=== PATIENT | female | born 1975 | race Caucasian/White ===

== ENCOUNTER 2018-09-18 05:34 | Day surgery (SDC) | payer OTHER ==
[~2018-09-18] VITALS: Ht 162.6 cm; Wt 102.1 kg
--- NOTE | ~2018-09-18 | O ---
[facility] [place] [address] OPERATIVE REPORT Name: BRISEIDA WELCH Room #: 150-14 [facility] M..#: [id number] Admission: 09/18/18 ������������������ Attend Phys: Zia Freeman MD Discharge: ������������������ Date of : 79 Report #: [id number] THIS REPORT FOR: //name// CC: Russ Freeman DATE OF SERVICE: 09/18/2018 PREOPERATIVE DIAGNOSES: 1. Left insertional Achilles tendinitis. 2. Left Polly's deformity. POSTOPERATIVE DIAGNOSES: 1. Left insertional Achilles tendinitis. 2. Left Polly deformity. PROCEDURE: 1. Left Achilles tendon debridement with detachment and reattachment. 2. Left Polly's deformity excision. 3. Left flexor hallucis longus tendon transfer. SURGEON: Zia Freeman M.D. TEACHING YOUNG: Yumiko Alba. ANESTHESIA: General. ESTIMATED BLOOD LOSS: Minimal. DRAINS: No drains. TOURNIQUET TIME: 45 minutes. DESCRIPTION OF PROCEDURE: The patient brought to the operating room where she was placed under general anesthesia. Once under adequate general anesthesia, she was placed into a prone position on the operative table. The patient's left lower extremity was then prepped and draped in sterile manner. The extremity was elevated, exsanguinated, tourniquet placed 300 mmHg. A posterior incision approximately 10 cm in length was made along the insertion of the Achilles tendon. This was dissected down through soft tissue of the paratenon, which was elevated off of the tendon. The tendon itself was then elevated off of the bone. The insertion was debrided with a rongeur and the tendon itself was debrided with tenotomy scissors to good tendon tissue at the distal end of the tendon. The Polly's deformity was then exposed and a sagittal saw was used to resect this along with a rongeur. Dissection was carried to the posterior ankle where the flexor hallucis longus tendon was identified and subsequently released [address] [address] OPERATIVE REPORT Name: BRISEIDA WELCH Room #: 150-14 [facility] M.R.#: [id number] Admission: 09/18/18 ������������������ Attend Phys: Zia Freeman MD Discharge: ������������������ Date of : 79 Report #: [id number] in its fiber osseous tunnel and brought up to the posterior wound. This was then tied with a 2-0 Vicryl suture. A drill hole for the Bio-Tenodesis screw was then placed and the tendon was then transferred into the bone and fixed into place with a Bio-Tenodesis screw. Excellent fixation was achieved in this manner. The Achilles SpeedBridge was then drilled, tapped and placed, bringing the tendon back down to the bone with the SpeedBridge anchors. Excellent fixation was achieved in this manner. The wound was irrigated copiously and closed with 2-0 Vicryl in the paratenon, 2-0 Vicryl in subcutaneous tissues and angela for the skin. The wounds were dressed with Xeroform, 4 x 4s, and sterile soft compressive dressing and a short leg cast was placed. Tourniquet was let down at approximately 45 minutes. Toes were pink and warm with good capillary refill. There were no complications from the procedure. The patient tolerated the procedure well and went to the recovery room without incident. ��������������������������������������������� ���������������������������������������� By: ��������������������������������������������� [id number] Zia Freeman MD /nt
[~2018-09-18 05:34] MED LIST: CELEBREX 200 M200 M1 PO; IBUPROFEN 200200 M1 PO; TRAMADOL 50 MG50 MG PO
[2018-09-18 10:01] VITALS: BP 135/79
[2018-09-18] MEDS ORDERED: ASA5UEC PO (13:16)
[2018-09-18] MEDS ORDERED: PERCOCET 7.5-31 EACH PO (13:16)
[2018-09-18 14:50] VITALS: BP 135/79
== END 2018-09-18 15:50 | disposition home or self-care (01) ==
LOC: OR 05:34 → TBA 05:35 → OR 15:03
DX: M76.62 Achilles tendinitis, left leg (principal); M92.62 Juvenile osteochondrosis of tarsus, left ankle; F41.9 Anxiety disorder, unspecified; Z98.890 Other specified postprocedural states; Z88.8 Allergy status to other drugs, medicaments and biological substances; Z87.442 Personal history of urinary calculi; Z79.82 Long term (current) use of aspirin
CPT/HCPCS: 50010; 50101; 50386; 50951; 51412; 52120; 54006; 55430; 56524; 56527; 57091; 64039

== ENCOUNTER 2018-09-27 12:32 | Emergency (ER) | payer OTHER ==
[~2018-09-27] VITALS: Ht 162.6 cm; Wt 102.1 kg
[~2018-09-27 12:32] MED LIST changes: +ASA5UEC PO; +PERCOCET 7.5-31 EACH PO
[2018-09-27 14:32] VITALS: BP 123/85
[2018-09-27] MEDS ORDERED: NORFLEX100 MG PO (14:59)
== END 2018-09-27 15:08 | disposition home or self-care (01) ==
LOC: ER 12:32
DX: G89.18 Other acute postprocedural pain (principal); M79.672 Pain in left foot; F41.9 Anxiety disorder, unspecified; Z90.49 Acquired absence of other specified parts of digestive tract; Z98.890 Other specified postprocedural states; Z88.1 Allergy status to other antibiotic agents; Z88.8 Allergy status to other drugs, medicaments and biological substances